=== PATIENT | male | born 1960 | race Asian ===

== ENCOUNTER 2016-11-04 16:48 | Emergency (ER) | payer BC ==
[2016-11-04 16:58] VITALS: BP 124/74; PULSE 66; TEMP 98.7; BMI 25.8
[2016-11-04] MEDS ORDERED: IBUPROFEN 600 MG TABLET (FP) PO ONE ×2 (20:19→20:29)
--- NOTE | 2016-11-04 20:22 | PDOC ---
History of Present Illness - General Chief Complaint: Injury Stated Complaint: NECK INJURY/RT HAND INJURY Time Seen by Provider: 11/04/16 19:11 History Source: Patient Exam Limitations: No Limitations - History of Present Illness Initial Comments: 11/04/16 21:45 Chief complaint: Right hand pain and neck pain History of present illness: Patient is a 56-year-old male history of non-insulin -dependent diabetes here today complaining of right hand pain over his second metacarpal joint after a dumpster door fell on it today. Patient also reports that when this happened his neck hyperflexed backwards he felt a pain in his neck. Patient reports the pain continues and is currently attending. Patient also reports that right hand pain is a 10 presently. Patient denies any radiation of pain down arms or numbness of arms. Patient has full range of motion of all digits on right hand and right wrist. Occurred: reports: this afternoon Severity: reports: moderate (b/l neck pain, rt. hand pain over 2nd metacarpal bone) Pain Location: reports: neck (b/l ), upper extremity (right hand over 2nd metacarpal ) Method of Injury: Yes: direct blow (by a metal dumpster door hit rt. hand did not hit his head or neck) Past History - Past Medical History Allergies/Adverse Reactions: Allergies Allergy/AdvReac Type Severity Reaction Status Date / Time No Known Allergies Allergy Verified 11/04/16 16:54 Home Medications: Ambulatory Orders Metformin HCl [Metformin HCl ER] 1,000 mg PO BID 02/09/16 Metoprolol Succinate [Toprol XL -] 25 mg PO DAILY 02/09/16 Oxycodone HCl/Acetaminophen [Percocet 5-325 mg Tablet] 1 tab PO Q6H PRN #8 tablet MDD 4 02/09/16 Dementia: Yes Diabetes: Yes HTN: Yes - Immunization History Immunization Up to Date: Yes - Psycho/Social/Smoking Cessation Hx Anxiety: No Suicidal Ideation: No Smoking History: Never smoked Information on smoking cessation initiated: No Hx Alcohol Use: No Drug/Substance Use Hx: No Review of Systems - Review of Systems Able to Perform ROS?: Yes Constitutional: No: Symptoms Reported HEENTM: No: Symptoms Reported Respiratory: No: Symptoms reported Cardiac (ROS): No: Symptoms Reported ABD/GI: No: Symptoms Reported : No: Symptoms Reported Musculoskeletal: Yes: Joint Pain (rt. hand over 2nd mcp jt ), Joint Swelling ( rt. hand over 2nd mcp jt ), Neck Pain (b/l ) Integumentary: No: Symptoms Reported Neurological: No: Symptoms reported *Physical Exam - Vital Signs Last Vital Signs Temp Pulse Resp BP Pulse Ox 98.7 F 66 2 L 124/74 97 11/04/16 16:54 11/04/16 16:54 11/04/16 16:54 11/04/16 16:54 11/04/16 16:54 - Physical Exam General Appearance: Yes: Appropriately Dressed Neck: positive: Tender lateral (b/l ). negative: Decreased range of motion, Lymphadenopathy (R), Lymphadenopathy (L), Rigidity, Tender midline Respiratory/Chest: positive: Lungs Clear, Normal Breath Sounds Cardiovascular: positive: Regular Rhythm, Regular Rate, S1, S2 Comments:: 11/04/16 23:15 radial pulse 4 + rt. Extremity: positive: Normal Capillary Refill, Normal Inspection, Normal Range of Motion (rt. hand, all digits, rt. wrist ), Tender (over rt. 2nd mcp jt), Swelling (slight over rt. 2nd mcp jt) Integumentary: positive: Normal Color Neurologic: positive: Alert, Normal Response, Motor Strength 5/5 (upper extremities b/l ), Responsive. negative: Respond to painful stimul (arms ), Sensory Deficit Medical Decision Making - Medical Decision Making 11/04/16 21:47 Patient is a 56-year-old male history of [id number] diabetes here today complaining of right hand pain over his second metacarpal joint after a dumpster door fell on it today. Patient also reports that when this happened his neck hyperflexed backwards he felt a pain in his neck. Patient reports the pain continues and is currently attending. Patient also reports that right hand pain is a 10 presently. Patient denies any radiation of pain down arms or numbness of arms. Patient has full range of motion of all digits on right hand and right wrist. Hand pain contusion neck pain b/l whiplash like injury PLAN: xray rt. hand no fracture noted xray cervical spine degenerative changes noted Ibuprofen 600 mg po now than every 6 hrs prn pain 11/04/16 23:16 *DC/Admit/Observation/Transfer Diagnosis at time of Disposition: Contusion of hand Qualifiers: Encounter type: initial encounter Laterality: right Qualified Code(s): S60.221A - Contusion of right hand, initial encounter Whiplash injury to neck Qualifiers: Encounter type: initial encounter Qualified Code(s): S13.4XXA - Sprain of ligaments of cervical spine, initial encounter - Discharge Dispostion Disposition: HOME Condition at time of disposition: Stable - Referrals Referrals: [place]o [place] MD [Primary Care Provider] - Ron Guerra MD [Staff Physician] - - Patient Instructions Additional Instructions: Ice to right hand every 2 hours while awake today and tomorrow Avoid any strenuous activities or exercise Follow-up with orthopedist if pain continues within the next few days Ibuprofen as needed as directed by tire and lube technician for pain Patient voiced understanding of discharge instructions all questions were answered - Post Discharge Activity Work/School Note: Back to Work
== END 2016-11-04 22:24 | disposition home or self-care (01) ==
LOC: JERFT 16:48
DX: S60.221A Contusion of right hand, initial encounter (principal); S13.4XXA Sprain of ligaments of cervical spine, initial encounter; W20.8XXA Other cause of strike by thrown, projected or falling object, initial encounter; Y93.89 Activity, other specified; Y92.89 Other specified places as the place of occurrence of the external cause; Y99.8 Other external cause status; I10 Essential (primary) hypertension; E11.9 Type 2 diabetes mellitus without complications; Z79.84 Long term (current) use of oral hypoglycemic drugs
CPT/HCPCS: 72050-TC; 73130-TC-RT; 99281-25

== ENCOUNTER 2023-10-19 04:20 | Day surgery (SDC) | payer BC ==
[2023-10-18 13:33] VITALS: BMI 25.8
[2023-10-19] MEDS ORDERED: PROPOFOL 20 ML ONE (07:32)
[2023-10-19] MEDS ORDERED: LIDOCAINE HCL/PF 2% SDV 5ML VIAL ONE (07:32)
[2023-10-19] MEDS ORDERED: ONDANSETRON 4 MG/2 ML VIAL ONE (07:32)
[2023-10-19] MEDS ORDERED: MIDAZOLAM HCL 2 MG/2 ML SINGLE DOSE VIAL ONE (07:32)
[2023-10-19] MEDS ORDERED: IOVERSOL 300 MG/ML ML IV ONE ×2 (07:43)
[2023-10-19] MEDS ORDERED: DEXAMETHASONE SOD PHOSPHATE 4 MG/1 ML VIAL ONE (07:44)
[2023-10-19] MEDS ORDERED: KETOROLAC TROMETHAMINE 30 MG/1 ML VIAL ONE (07:44)
[2023-10-19] MEDS ORDERED: ceFAZolin SODIUM 1 GM VIAL ONE (07:45)
[2023-10-19] MEDS ORDERED: ceFAZolin SODIUM 1 GM VIAL IVPB ONE (07:53)
[2023-10-19] MEDS ORDERED: oxyCODONE HCL 5 MG TABLET PO PRN ×2 (08:31)
[2023-10-19] MEDS ORDERED: ACETAMINOPHEN 1000 MG/100 ML BAG IVPB PRN (08:31)
[2023-10-19] MEDS ORDERED: ONDANSETRON 4 MG/2 ML VIAL IVPUSH PRN (08:31)
[2023-10-19] MEDS ORDERED: LACTATED RINGERS SOLUTION 1,000 ML IV SCH (08:45)
[2023-10-19] MEDS ORDERED: ACETAMINOPHEN INJECTION 100 ML IVPB ONE (08:52)
[2023-10-19 10:55] VITALS: BP 168/81; PULSE 59; RESP 18; TEMP 97.3
== END 2023-10-19 12:15 | disposition home or self-care (01) ==
LOC: JASU-SURG 04:20
PROVIDERS: ATTEND Urology
PROC: 0T778DZ Dilation of Left Ureter with Intraluminal Device, Via Natural or Artificial Opening Endoscopic (ICD-10-PCS; principal; 2023-10-19 07:30)
PROC: 0TF78ZZ Fragmentation in Left Ureter, Via Natural or Artificial Opening Endoscopic (ICD-10-PCS; 2023-10-19 07:30)
PROC: 0T778DZ Dilation of Left Ureter with Intraluminal Device, Via Natural or Artificial Opening Endoscopic (ICD-10-PCS; 2023-10-19 07:30)
DX: N13.5 Crossing vessel and stricture of ureter without hydronephrosis (principal); N20.1 Calculus of ureter
CPT/HCPCS: 76000-TC-FY; 82962; 94760; C1758; C2617

== ENCOUNTER 2023-11-07 04:15 | Day surgery (SDC) | payer BC ==
[2023-11-03 15:53] VITALS: BMI 25.8
[2023-11-07] MEDS ORDERED: MIDAZOLAM HCL 2 MG/2 ML SINGLE DOSE VIAL ONE (14:23)
[2023-11-07] MEDS ORDERED: PROPOFOL 20 ML ONE (14:23)
[2023-11-07] MEDS ORDERED: ceFAZolin 2 GRAM PREMIX BAG IVPB ONE (14:40)
[2023-11-07] MEDS ORDERED: ceFAZolin SODIUM 1 GM VIAL ONE (14:41)
[2023-11-07] MEDS ORDERED: LIDOCAINE HCL/PF 2% SDV 5ML VIAL ONE (14:41)
[2023-11-07] MEDS ORDERED: ONDANSETRON 4 MG/2 ML VIAL ONE (14:47)
[2023-11-07] MEDS ORDERED: DEXAMETHASONE SOD PHOSPHATE 4 MG/1 ML VIAL ONE (14:47)
[2023-11-07] MEDS ORDERED: oxyCODONE HCL 5 MG TABLET PO PRN ×2 (16:49)
[2023-11-07] MEDS ORDERED: ONDANSETRON 4 MG/2 ML VIAL IVPUSH PRN (16:49)
[2023-11-07] MEDS ORDERED: PROMETHAZINE HCL 25 MG/1 ML VIAL IVPB PRN (16:49)
[2023-11-07] MEDS ORDERED: LACTATED RINGERS SOLUTION 1,000 ML IV SCH (17:00)
[2023-11-07] MEDS ORDERED: oxyCODONE HCL 5 MG TABLET ONE (17:47)
[2023-11-07 18:03] VITALS: PULSE 54; RESP 18
[2023-11-07 19:41] VITALS: BP 168/82; TEMP 97.6
== END 2023-11-07 19:00 | disposition home or self-care (01) ==
LOC: JASU-SURG 04:15
PROVIDERS: ATTEND Urology
PROC: BT1FYZZ Fluoroscopy of Left Kidney, Ureter and Bladder using Other Contrast (ICD-10-PCS; 2023-11-07)
PROC: 0TP98DZ Removal of Intraluminal Device from Ureter, Via Natural or Artificial Opening Endoscopic (ICD-10-PCS; principal; 2023-11-07 13:00)
DX: N20.0 Calculus of kidney (principal)
CPT/HCPCS: 76000-TC-FY; 82962; 94760; C1747; C1758

== ENCOUNTER 2023-12-20 21:37 | Inpatient (IN) | payer BC ==
[2023-12-20] MEDS ORDERED: ACETAMINOPHEN INJECTION 100 ML IVPB ONE (22:44)
[2023-12-20] MEDS ORDERED: PIPERACILLIN/TAZOB 3.375 GM 3.375 GM/50 ML BAG IVPB ONE ×2 (22:44→22:47)
[2023-12-20 22:47] LABS: BASO % 0.3 % (0-2.0); EOS % 0.1 % (0-4.5); HEMATOCRIT 36.1 % (35.4-49); HEMOGLOBIN 11.5 GM/dL (11.7-16.9); LYMPH % 4.7 % (8-40); MCH 20.7 pg (25.7-33.7); MCHC 31.9 g/dl (32.0-35.9); MEAN CELL VOLUME 64.8 fl (80-96); MONO % 5.1 % (3.8-10.2); NEUT % 89.8 % (42.8-82.8); PLATELET COUNT 191 10^3/uL (134-434); RBC 5.56 M/mm3 (4.00-5.60); RDW 15.5 % (11.9-15.9); WHITE BLOOD COUNT 16.9 K/mm3 (4.0-10.0)
[2023-12-20 22:48] LABS: VENOUS BASE EXCESS 0.9 mmol/L (-2-2); VENOUS PCO2 37.8 mmHg (38-52); VENOUS PH 7.437 (7.310-7.410)
[2023-12-20] MEDS: ACETAMINOPHEN 1000 MG/100 ML BAG IVPB ONE (22:52)
[2023-12-20] MEDS: PIPERACILLIN/TAZOB 3.375 GM 3.375 GM in DEXTROSE 5%-WATER - 50 ML IVPB ONE (22:52)
[2023-12-20] MEDS: SODIUM CHLORIDE 1,000 ML IV STA (22:52)
[2023-12-20 22:54] LABS: INR 1.22 (0.83-1.09); PROTHROMBIN TIME (PATIENT) 14.1 SEC (9.7-13.0)
[2023-12-20 22:57] LABS: ACTIVATED PTT 33.2 SECONDS (25.2-36.5)
[2023-12-20 23:09] LABS: POTASSIUM 3.6 mmol/L (3.5-5.1)
[2023-12-20 23:11] LABS: ALBUMIN 3.4 g/dl (3.4-5.0); BLOOD UREA NITROGEN 20.5 mg/dL (7-18); CALCIUM 8.8 mg/dL (8.5-10.1)
[2023-12-20 23:14] LABS: CREATININE 0.9 mg/dL (0.55-1.3)
[2023-12-20 23:16] LABS: BILIRUBIN,TOTAL 1.4 mg/dL (0.2-1)
[2023-12-20 23:20] LABS: EPI CELLS 1 /uL (0-25.1); HYALINE CASTS 0 /uL (0-3.1); PH,URINE 5.5 (5.0-8.0); URINE APPEARANCE CLOUDY; URINE BACTERIA 180 /uL (0-1359); URINE BILIRUBIN NEGATIVE (NEGATIVE); URINE COLOR YELLOW; URINE GLUCOSE (UA) 3+ (NEGATIVE); URINE KETONE NEGATIVE (NEGATIVE); URINE LEUK ESTERASE NEGATIVE (NEGATIVE); URINE NITRITE NEGATIVE (NEGATIVE); URINE PROTEIN 2+ (NEGATIVE); URINE UROBILINOGEN 0.2 mg/dL (0.2-1.0)
[2023-12-21 00:02] LABS: ANISOCYTOSIS 1+; MACROCYTOSIS 1+; OVALOCYTE 1+; TARGET CELLS 1+; TEAR DROP CELLS 1+
[2023-12-21 00:04] LABS: PLATELET ESTIMATE ADEQUATE
[2023-12-21] MEDS: SODIUM CHLORIDE 1,000 ML IV STA ×2 (00:11→01:51)
[2023-12-21 00:35] LABS: URINE RBC 149.4 /uL (0-23.9); URINE WBC 3718.8 /uL (0-25.8); YEAST NONE SEEN (NEGATIVE)
[2023-12-21 01:13] LABS: BILIRUBIN,DIRECT 0.3 mg/dL (0.0-0.2)
[2023-12-21] MEDS ORDERED: PIPERACILLIN/TAZOB 3.375 GM 3.375 GM in DEXTROSE 5%-WATER - 50 ML IVPB SCH (03:00)
[2023-12-21] MEDS: PIPERACILLIN/TAZOB 3.375 GM 3.375 GM in DEXTROSE 5%-WATER - 50 ML IVPB SCH ×2 (03:50→15:28)
[2023-12-21] MEDS: SODIUM CHLORIDE 1,000 ML IV SCH (03:53)
[2023-12-21 03:59] VITALS: BMI 23.1
[2023-12-21] MEDS ORDERED: PIPERACILLIN/TAZOB 2.25 GM 2.25 GM in DEXTROSE 5%-WATER - 50 ML IVPB SCH (04:00)
[2023-12-21] MEDS ORDERED: ACETAMINOPHEN 1000 MG/100 ML BAG IVPB PRN (05:00)
[2023-12-21] MEDS: INSULIN ASPART SLIDING SCALE (NOVOLOG) 1 VIAL SQ SCH (06:01)
[2023-12-21 08:35] LABS: HEMATOCRIT 29.6 % (35.4-49); HEMOGLOBIN 9.7 GM/dL (11.7-16.9); MCH 21.2 pg (25.7-33.7); MCHC 32.9 g/dl (32.0-35.9); MEAN CELL VOLUME 64.5 fl (80-96); MEAN PLT VOLUME 9.4 fl (7.5-11.1); PLATELET COUNT 158 10^3/uL (134-434); RDW 15.1 % (11.9-15.9); WHITE BLOOD COUNT 20.7 K/mm3 (4.0-10.0)
[2023-12-21 08:57] LABS: POTASSIUM 3.5 mmol/L (3.5-5.1)
[2023-12-21 08:59] LABS: CALCIUM 7.7 mg/dL (8.5-10.1)
[2023-12-21 09:00] LABS: BLOOD UREA NITROGEN 16.3 mg/dL (7-18); MAGNESIUM 1.9 mg/dL (1.8-2.4)
[2023-12-21 09:02] LABS: BILIRUBIN,DIRECT 0.4 mg/dL (0.0-0.2)
[2023-12-21 09:03] LABS: CREATININE 0.9 mg/dL (0.55-1.3); PHOSPHOROUS 3.3 mg/dL (2.5-4.9)
[2023-12-21 09:04] LABS: BILIRUBIN,TOTAL 1.6 mg/dL (0.2-1); TOT PROT 5.6 g/dl (6.4-8.2)
[2023-12-21 09:09] LABS: ALBUMIN 2.7 g/dl (3.4-5.0)
[2023-12-21] MEDS: ENOXAPARIN NA (PORCINE) 40 MG/0.4 ML DISP.SYRIN SQ SCH (09:20)
[2023-12-21] MEDS ORDERED: IOHEXOL (OMNIPAQUE PO) 12 MG/ML - 500 ML BOTTLE PO ONE (16:57)
[2023-12-21] MEDS: LACTATED RINGERS SOLUTION 1,000 ML/1,000 ML INFUS.BAG IV SCH (17:08)
[2023-12-21] MEDS: TAMSULOSIN HCL 0.4 MG CAP PO SCH (21:08)
[2023-12-21] MEDS: ATORVASTATIN CA 10 MG TABLET (FP) PO SCH (21:08)
[2023-12-22 08:18] LABS: BASO % 0.1 % (0-2.0); EOS % 0.2 % (0-4.5); HEMATOCRIT 30.9 % (35.4-49); HEMOGLOBIN 10.1 GM/dL (11.7-16.9); LYMPH % 10.9 % (8-40); MCH 20.8 pg (25.7-33.7); MCHC 32.6 g/dl (32.0-35.9); MEAN CELL VOLUME 63.9 fl (80-96); MEAN PLT VOLUME 8.8 fl (7.5-11.1); MONO % 5.9 % (3.8-10.2); NEUT % 82.9 % (42.8-82.8); PLATELET COUNT 141 10^3/uL (134-434); RBC 4.83 M/mm3 (4.00-5.60); RDW 15.6 % (11.9-15.9); RETICULOCYTES 1.71 % (0.5-1.5); WHITE BLOOD COUNT 15.8 K/mm3 (4.0-10.0)
[2023-12-22 08:19] LABS: POTASSIUM 3.4 mmol/L (3.5-5.1)
[2023-12-22 08:20] LABS: ALBUMIN 2.9 g/dl (3.4-5.0); BLOOD UREA NITROGEN 12.7 mg/dL (7-18); CALCIUM 7.9 mg/dL (8.5-10.1)
[2023-12-22 08:24] LABS: CREATININE 0.9 mg/dL (0.55-1.3)
[2023-12-22 08:25] LABS: BILIRUBIN,TOTAL 1.7 mg/dL (0.2-1)
[2023-12-22] MEDS: POTASSIUM CHLORIDE ORAL LIQUID 20 MEQ/15 ML PO ONE (09:38)
[2023-12-22] MEDS: PANTOPRAZOLE 40 MG TABLET PO SCH (10:52)
[2023-12-22 15:22] VITALS: RESP 18
[2023-12-22] MEDS ORDERED: PIPERACILLIN/TAZOBACTAM 3.375 GM VIAL IVPB ONE (20:28)
[2023-12-23 08:48] LABS: BASO % 0.3 % (0-2.0); EOS % 0.6 % (0-4.5); HEMATOCRIT 31.9 % (35.4-49); HEMOGLOBIN 10.2 GM/dL (11.7-16.9); LYMPH % 13.7 % (8-40); MCH 20.7 pg (25.7-33.7); MEAN CELL VOLUME 64.7 fl (80-96); MEAN PLT VOLUME 9.7 fl (7.5-11.1); MONO % 7.2 % (3.8-10.2); NEUT % 78.2 % (42.8-82.8); PLATELET COUNT 162 10^3/uL (134-434); RBC 4.93 M/mm3 (4.00-5.60); RDW 15.4 % (11.9-15.9); WHITE BLOOD COUNT 12.1 K/mm3 (4.0-10.0)
[2023-12-23] MEDS ORDERED: PIPERACILLIN/TAZOBACTAM 3.375 GM VIAL IVPB ONE (08:49)
[2023-12-23] MEDS: POTASSIUM CHLORIDE ORAL LIQUID 20 MEQ/15 ML PO ONE (11:36)
[2023-12-23] MEDS: LACTOBACILLUS ACIDOPHILUS 1 TABLET PO SCH (11:36)
[2023-12-23 12:05] VITALS: BP 138/78; PULSE 66; TEMP 98.6
[2023-12-23] MEDS ORDERED: CEFPODOXIME PROXETIL 100 MG TABLET PO SCH (14:00)
== END 2023-12-23 12:20 | disposition home or self-care (01) | DRG 698 ==
LOC: JER 21:37 → OBSVTOIN 12-21 00:06 → JERBED 12-21 00:06 → J8W 12-21 03:33
PROVIDERS: ADMIT Internal Medicine; ATTEND Family Medicine
DX: N99.89 Other postprocedural complications and disorders of genitourinary system (principal); A41.89 Other specified sepsis; N39.0 Urinary tract infection, site not specified; R17 Unspecified jaundice; E11.9 Type 2 diabetes mellitus without complications; D64.9 Anemia, unspecified; M50.20 Other cervical disc displacement, unspecified cervical region; M51.26 Other intervertebral disc displacement, lumbar region; R00.0 Tachycardia, unspecified; I10 Essential (primary) hypertension; D72.829 Elevated white blood cell count, unspecified; N40.0 Benign prostatic hyperplasia without lower urinary tract symptoms; M54.16 Radiculopathy, lumbar region; M54.12 Radiculopathy, cervical region; Y83.8 Other surgical procedures as the cause of abnormal reaction of the patient, or of later complication, without mention of misadventure at the time of the procedure
CPT/HCPCS: 0241U-QW; 36415; 71046-TC-FY; 74176-TC; 80053; 80076; 81003; 82248; 82272; 82728; 82803; 82962; 83036; 83540; 83550; 83605; 83615; 83735; 84100; 84466; 84484; 85025; 85027; 85045; 85610; 85730; 86850; 86900; 86901; 87040; 87086; 93005; 93010; 99285-25; J0131